=== PATIENT | male | born 1945 | race Caucasian/White ===

== ENCOUNTER 2019-01-01 12:43 | Observation (INO) | payer MEDICARE, BC ==
[2019-01-01] MEDS ORDERED: Magnesium 2 GM/50 ML BAG (IN WATER) ONE (13:24)
[2019-01-01 13:26] LABS: #Eosinphils 0.1 thou/uL (0.0-0.7); #Lymphocytes 1.8 thou/uL (1.20-3.40); #Neutrophils 10.4 thou/uL (1.40-6.50); %Basophils 0.3 % (0.0-1.0); %Eosinophils 0.7 % (0.0-10.0); %Lymphocytes 13.4 % (21.0-51.0); %Monocytes 7.6 % (0.0-10.0); %Neutrophils 77.9 % (42.0-75.0); Hemoglobin 15.6 g/dL (14.0-18.0); Mean Corpuscular HGB CONC 34.2 g/dL (32.0-36.0); Mean Corpuscular Hemoglobin 32.6 pg (27.0-31.0); Mean Corpuscular Volume 95.3 fL (78.0-98.0); Mean Platelet Volume 8.9 fL (7.4-10.4); Platelet Count 160 thou/uL (130-400); RBC Distribution Width 13.3 % (11.5-14.5); Red Blood Cell (RBC) Count 4.78 mill/uL (4.70-6.10); White Blood Cell (WBC) Count 13.3 thou/uL (4.8-10.8)
[2019-01-01 13:42] LABS: ALT (SGPT) 23 U/L (8-55); AST (SGOT) 21 U/L (5-34); Alkaline Phosphatase 74 U/L (40-150); Anion Gap 13 mmol/L (10-20); BUN (Urea Nitrogen) 11 mg/dL (8.4-25.7); Bilirubin, Total 1.2 mg/dL (0.2-1.2); CK (CPK) 93 U/L (30-200); Calc. Creatinine Clearance 0 mL/min (70-130); Calcium 9.3 mg/dL (7.8-10.44); Carbon Dioxide 26 mmol/L (23-31); Chloride 101 mmol/L (98-107); Estimated GFR-MDRD 66; Globulin 2.6 g/dL (2.4-3.5); Glucose 149 mg/dL (83-110); Potassium 4.1 mmol/L (3.5-5.1); Protein, Total 6.6 g/dL (5.8-8.1); Sodium 136 mmol/L (136-145)
--- NOTE | 2019-01-01 13:56 | RAD ---
EXAM: Portable chest PROVIDED CLINICAL HISTORY: Syncope COMPARISON: None FINDINGS: Cardiac and mediastinal silhouette is within normal limits. No focal consolidation, pleural fluid or pneumothorax evident. Vascular calcification is seen. IMPRESSION: No evidence for an acute cardiopulmonary process.
[2019-01-01] MEDS ORDERED: Acetaminophen 325 MG TAB PO PRN (14:35)
[2019-01-01] MEDS ORDERED: Nicotine 14 MG PATCH TD PRN (17:08)
[2019-01-01] MEDS ORDERED: Ondansetron PF 4 MG/2 ML Vial IVP PRN (17:08)
[2019-01-01 17:21] LABS: Troponin I Less than 0.010 ng/mL (< 0.028)
[2019-01-01 17:43] VITALS: BMI 28.7
--- NOTE | 2019-01-01 18:08 | CT ---
CT Brain WO Con History: Syncope Comparison: None. Findings: No acute hemorrhage or infarct. No midline shift or mass effect. Ventricular size and extra -axial CSF spaces are normal given the moderate atrophy. Calvarium is intact. Paranasal sinuses and mastoids are clear. Impression: No acute intracranial abnormality.
--- NOTE | 2019-01-01 18:56 | HP ---
CHIEF COMPLAINT: Syncope. HISTORY OF PRESENT ILLNESS: The patient is a pleasant 73-year-old male with past medical history significant for hypertension, hyperlipidemia, and tobacco abuse, who presented to the hospital via EMS after suffering 2 brief witnessed syncopal episodes at home. 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 He admits to not drinking much water, and was sweating profusely. He did not get into the shade, but sat on his 4- yost to rest. His was sitting next to him. He states that he became dizzy and had some vision changes which he describes as "seeing black and white." His , who witnessed the 2 events, states that he briefly slumped in his seat. This happened twice. The patient states that he could still hear what was going on around him. There was no loss of bowel or bladder or seizure activity witnessed. EMS was called. The patient was having frequent PVCs, and was administered lidocaine along with amiodarone. The patient was given IV fluids on the way to the ER. After receiving IV fluids, the patient stated that he was feeling back to his baseline. Upon my interview, the patient states that he is feeling well and is having no further symptoms. Workup on arrival has included a 12-lead EKG, which shows sinus rhythm and one PVC. The patient was continuing to have some trigeminal PVCs when he arrived, that these are becoming less frequent. The patient reports no chest pain, shortness of breath or palpitations at all regarding these episodes, and states that he has had no palpitations previously. REVIEW OF SYSTEMS: 12-point review of systems performed and is negative except that stated above. The patient denies any recent illnesses, cough, fever, or change in bowel or bladder. He has had no unintentional weight loss. ALLERGIES: PREDNISONE. HOME MEDICATIONS: 1. Duloxetine 60 mg tabs one tab daily. 2. Metoprolol tartrate 50 mg tablet one tab p.o. b.i.d. 3. Gabapentin 300 mg tab one tab orally t.i.d. 4. Losartan/hydrochlorothiazide 100/12.5 mg one tab once daily. 5. Atorvastatin 40 mg once daily. 6. Amlodipine 5 mg tab once daily. PAST MEDICAL HISTORY: Significant for type 2 diabetes mellitus, hypertension, hyperlipidemia, and anxiety/depression. PAST SURGICAL HISTORY: Cervical spinal fusion. SOCIAL HISTORY: The patient drinks alcohol regularly, 3 to 5 beers per day. He smokes one pack per day of cigarettes and has smoked for the past 30 years. No illicit drug use. He is and lives with his . FAMILY HISTORY: Positive for CVA in his brother. PHYSICAL EXAMINATION: VITAL SIGNS: Blood pressure 157/106, pulse 68, respirations 19, temperature 98.3, and O2 sat is 96% on room air. GENERAL: This is a middle-aged male, resting comfortably in bed, in no acute distress. HEENT: Head is atraumatic and normocephalic. Mucous membranes are moist. Poor dentition. CV: S1 and S2. Regular rate and rhythm with occasional ectopy. LUNGS: Regular respiratory rate and pattern. Clear to auscultation bilaterally. ABDOMEN: Positive bowel sounds. Soft and nontender. EXTREMITIES: Warm and well perfused. No edema. SKIN: Warm and dry. NEUROLOGIC: Cranial nerves 2 through 12 are intact, the patient is nonfocal. LABORATORY DATA: White blood cell count 13.3, hemoglobin 15.6, hematocrit 45.6 , and platelet count 160. Sodium 136, potassium 4.1, chloride 101, BUN 11, and creatinine 1.1. AST, ALT, and alk phos all within normal limits. Creatine kinase 93. Troponin is negative x2. ASSESSMENT: 1. Two brief syncopal episodes secondary to heat exhaustion/dehydration, resolved. 2. Trigeminal premature ventricular contractions at presentation, completely asymptomatic 3. Hypertension. 4. Hyperlipidemia. 5. Tobacco abuse. PLAN: The patient has received 3 L of fluid, magnesium, lidocaine and amiodarone by EMS. The patient feels well and back to his baseline. We will perform full syncopal workup including echo, brain CT, and carotids. Regarding his PVCs, they are becoming less frequent and are asymptomatic. We will continue his beta-luz for this and monitor their frequency on telemetry. If echocardiogram looks okay, it is reasonable for outpatient cardiology referral for PVC workup as an outpatient. Further recommendation is based on findings of noninvasive testing. Job ID: [id number] [facility]
[2019-01-01 19:41] LABS: Troponin I Less than 0.010 ng/mL (< 0.028)
--- NOTE | 2019-01-01 21:49 | ULT ---
US Carotid Doppler STANDARD History: Syncope Comparison: None. Findings: Real-time grayscale, color, and spectral analysis of the extracranial carotid and vertebral arteries was performed. Moderate obstructive plaque both carotid bulbs. Antegrade flow both vertebral arteries. No elevated peak systolic velocities within the internal carotid arteries. Impression: No hemodynamically significant stenosis.
[2019-01-01] MEDS: Famotidine 20 MG TAB PO SCH (21:52)
[2019-01-01] MEDS: Gabapentin 300 MG CAP PO SCH (21:53)
[2019-01-01] MEDS: Metoprolol Tartrate 50 MG TAB PO SCH (21:53)
[2019-01-02 05:58] LABS: #Eosinphils 0.3 thou/uL (0.0-0.7); #Lymphocytes 2.6 thou/uL (1.20-3.40); #Neutrophils 4.1 thou/uL (1.40-6.50); %Basophils 0.4 % (0.0-1.0); %Eosinophils 3.8 % (0.0-10.0); %Lymphocytes 32.5 % (21.0-51.0); %Monocytes 12.3 % (0.0-10.0); Hemoglobin 15.1 g/dL (14.0-18.0); Mean Corpuscular HGB CONC 33.8 g/dL (32.0-36.0); Mean Corpuscular Hemoglobin 32.6 pg (27.0-31.0); Mean Corpuscular Volume 96.4 fL (78.0-98.0); Mean Platelet Volume 9.7 fL (7.4-10.4); Platelet Count 163 thou/uL (130-400); RBC Distribution Width 13.5 % (11.5-14.5); Red Blood Cell (RBC) Count 4.62 mill/uL (4.70-6.10); White Blood Cell (WBC) Count 8.1 thou/uL (4.8-10.8)
[2019-01-02 06:23] LABS: Anion Gap 13 mmol/L (10-20); BUN (Urea Nitrogen) 13 mg/dL (8.4-25.7); Calc. Creatinine Clearance 98 mL/min (70-130); Calcium 9.8 mg/dL (7.8-10.44); Carbon Dioxide 27 mmol/L (23-31); Chloride 102 mmol/L (98-107); Estimated GFR-MDRD Greater than 90; Glucose 140 mg/dL (83-110); Potassium 3.9 mmol/L (3.5-5.1); Sodium 138 mmol/L (136-145)
[2019-01-02] MEDS ORDERED: DULoxetine 60 MG CAP PO SCH (09:00)
[2019-01-02] MEDS ORDERED: Hydrochlorothiazide 25 MG TAB PO SCH (09:00)
[2019-01-02] MEDS ORDERED: Non-Formulary Item 1 EACH (Losartan/Hydrochlorothiazide [Losartan-Hctz 100-12.5 Mg Tab] 1 PO SCH (09:00)
[2019-01-02] MEDS ORDERED: Losartan 25 MG TAB PO SCH (09:00)
[2019-01-02] MEDS ORDERED: Amlodipine 5 MG TAB PO SCH (09:00)
[2019-01-02] MEDS ORDERED: Atorvastatin Calcium 40 MG TAB PO SCH (09:00)
[2019-01-02] MEDS: Gabapentin 300 MG CAP PO SCH (09:03)
[2019-01-02] MEDS: Famotidine 20 MG TAB PO SCH (09:03)
[2019-01-02] MEDS: Metoprolol Tartrate 50 MG TAB PO SCH (09:04)
[2019-01-02 12:24] VITALS: BP 142/70; TEMP 98
== END 2019-01-02 15:09 | disposition home or self-care (01) ==
LOC: ERS 12:43 → 2SW 14:35
PROVIDERS: ADMIT Family Medicine; ATTEND Family Medicine
DX: T67.5XXA Heat exhaustion, unspecified, initial encounter (principal); E86.0 Dehydration; I49.3 Ventricular premature depolarization; I10 Essential (primary) hypertension; E78.5 Hyperlipidemia, unspecified; F17.210 Nicotine dependence, cigarettes, uncomplicated; E11.9 Type 2 diabetes mellitus without complications; F32.9 Major depressive disorder, single episode, unspecified; F41.9 Anxiety disorder, unspecified; Z98.890 Other specified postprocedural states; Z88.8 Allergy status to other drugs, medicaments and biological substances; Z79.899 Other long term (current) drug therapy
CPT/HCPCS: 70450; 71045; 80048; 80053; 82550; 83735; 84484 ×2; 85025 ×2; 93005; 93306; 93880; 94760; 96365; 99285; G0378 ×2; 36415; J3475

== ENCOUNTER 2022-08-27 18:10 | Inpatient (IN) | payer MEDICARE, OTHER ==
[2022-08-27 19:56] LABS: #Basophils 0.1 thou/uL (0.0-0.2); #Lymphocytes 1.8 thou/uL (1.20-3.40); #Monocytes 0.6 thou/uL (0.11-0.59); #Neutrophils 6.1 thou/uL (1.40-6.50); %Basophils 0.7 % (0.0-1.0); %Eosinophils 0.4 % (0.0-10.0); %Lymphocytes 21.1 % (21.0-51.0); %Monocytes 6.5 % (0.0-10.0); %Neutrophils 71.3 % (42.0-75.0); Hemoglobin 14.2 g/dL (14.0-18.0); Mean Corpuscular HGB CONC 35.4 g/dL (32.0-36.0); Mean Corpuscular Hemoglobin 32.4 pg (27.0-31.0); Mean Corpuscular Volume 91.4 fl (78.0-98.0); Mean Platelet Volume 10.3 fL (7.4-10.4); Platelet Count 157 10x3/uL (130-400); RBC Distribution Width 13.9 % (11.5-14.5); Red Blood Cell (RBC) Count 4.39 mill/uL (4.70-6.10); White Blood Cell (WBC) Count 8.6 10x3/uL (4.8-10.8)
[2022-08-27 20:17] LABS: AST (SGOT) 67 U/L (5-34); Albumin 3.3 g/dL (3.4-4.8); Anion Gap 20 mmol/L (10-20); Calc. Creatinine Clearance 0 mL/min (70-130); Calcium 8.9 mg/dL (7.8-10.44); Carbon Dioxide 28 mmol/L (23-31); Chloride 81 mmol/L (98-107); Estimated GFR 21; Protein, Total 7.3 g/dL (5.8-8.1); Sodium 127 mmol/L (136-145)
[2022-08-27 20:22] LABS: ALT (SGPT) 25 U/L (8-55); Alkaline Phosphatase 310 U/L (40-110); BUN (Urea Nitrogen) 28 mg/dL (8.4-25.7); Glucose 91 mg/dL (83-110); Lipase 39 U/L (8-78); Magnesium 1.9 mg/dL (1.6-2.6)
[2022-08-27 20:39] LABS: CKMB 4.6 ng/mL (0-6.6)
[2022-08-27 20:42] LABS: Potassium 2.3 mmol/L (3.5-5.1)
[2022-08-27] MEDS ORDERED: Potassium Chloride 20 MEQ TAB ONE ×3 (20:50→21:04)
[2022-08-27] MEDS ORDERED: Aspirin Chewable 81 MG TAB ONE (21:20)
[2022-08-27 23:53] LABS: Hemoglobin A1c 5.9 % (4.0-6.0)
[2022-08-28 00:04] LABS: Phosphorus 2.7 mg/dL (2.3-4.7)
[2022-08-28] MEDS ORDERED: Lorazepam 1 MG TAB PO PRN (00:09)
[2022-08-28] MEDS ORDERED: Lorazepam 2 MG/ML VIAL IM PRN (00:09)
[2022-08-28 00:12] LABS: Troponin I 0.038 ng/mL (< 0.028)
[2022-08-28] MEDS ORDERED: Electrolyte Replacement Protocol 1 EACH FS SCH (00:15)
[2022-08-28 00:40] LABS: HBCM Index 0.08 S/CO (0-0.79); HBSAg Index 0.29 S/CO (0-0.99); Hep A IgM AB Non-Reactive (NonReactive); Hep A IgM S/CO 0.19 S/CO (0-0.79); Hep B Surf Ag Non-Reactive S/CO (NonReactive); Hep C IgG Ab Non-Reactive (NonReactive); Hep C Index 0.06 S/CO (0-0.79); Hepatitis B Core IgM Abs Non-Reactive (NonReactive)
[2022-08-28] MEDS: Thiamine HCl 200 MG/2 ML VIAL SLOW IVP SCH (01:21)
[2022-08-28] MEDS: Sodium Chloride 0.9% 1,000 ML IV SCH ×4 (01:21→22:31)
[2022-08-28] MEDS: Potassium Chloride 20 MEQ in Premix Bag 1 BAG IVPB SCH ×2 (01:21→04:25)
[2022-08-28 02:06] VITALS: BMI 25.0
[2022-08-28 05:00] LABS: #Lymphocytes 1.4 thou/uL (1.20-3.40); #Monocytes 0.6 thou/uL (0.11-0.59); #Neutrophils 4.6 thou/uL (1.40-6.50); %Basophils 0.3 % (0.0-1.0); %Eosinophils 0.4 % (0.0-10.0); %Lymphocytes 21.4 % (21.0-51.0); %Monocytes 8.3 % (0.0-10.0); %Neutrophils 69.6 % (42.0-75.0); Hemoglobin 12.6 g/dL (14.0-18.0); Mean Corpuscular HGB CONC 35.1 g/dL (32.0-36.0); Mean Corpuscular Hemoglobin 31.9 pg (27.0-31.0); Mean Corpuscular Volume 90.9 fl (78.0-98.0); Mean Platelet Volume 9.8 fL (7.4-10.4); Platelet Count 140 10x3/uL (130-400); RBC Distribution Width 13.6 % (11.5-14.5); Red Blood Cell (RBC) Count 3.95 mill/uL (4.70-6.10); White Blood Cell (WBC) Count 6.7 10x3/uL (4.8-10.8)
[2022-08-28 05:17] LABS: Creatinine, Urine 42.27 mg/dL (63-166)
[2022-08-28 05:21] LABS: ALT (SGPT) 20 U/L (8-55); AST (SGOT) 55 U/L (5-34); Albumin 2.8 g/dL (3.4-4.8); Alkaline Phosphatase 240 U/L (40-110); Anion Gap 17 mmol/L (10-20); BUN (Urea Nitrogen) 26 mg/dL (8.4-25.7); Bilirubin, Total 1.8 mg/dL (0.2-1.2); Calc. Creatinine Clearance 24 mL/min (70-130); Calcium 8.1 mg/dL (7.8-10.44); Carbon Dioxide 24 mmol/L (23-31); Chloride 91 mmol/L (98-107); Estimated GFR 23; Globulin 3.2 g/dL (2.4-3.5); Glucose 90 mg/dL (83-110); Sodium 129 mmol/L (136-145)
[2022-08-28] MEDS ORDERED: Potassium Chloride 20 MEQ in Premix Bag 1 BAG IVPB SCH ×2 (08:00)
[2022-08-28] MEDS: Amlodipine 5 MG TAB PO SCH (08:54)
[2022-08-28] MEDS: Multivit, Therapeutic 1 TAB PO SCH (08:55)
[2022-08-28] MEDS: Folic Acid 1 MG TAB PO SCH (08:55)
[2022-08-28] MEDS: Metoprolol Tartrate 50 MG TAB PO SCH ×2 (08:55→20:39)
[2022-08-28 14:23] LABS: Anion Gap 18 mmol/L (10-20); BUN (Urea Nitrogen) 25 mg/dL (8.4-25.7); Calc. Creatinine Clearance 25 mL/min (70-130); Calcium 8.5 mg/dL (7.8-10.44); Carbon Dioxide 24 mmol/L (23-31); Chloride 92 mmol/L (98-107); Estimated GFR 25; Glucose 114 mg/dL (83-110); Potassium 3.1 mmol/L (3.5-5.1); Sodium 131 mmol/L (136-145)
[2022-08-28 16:01] LABS: Magnesium 1.7 mg/dL (1.6-2.6)
[2022-08-28] MEDS ORDERED: GoLYTELY 4,000 ml Bottle PO SCH (17:00)
[2022-08-28] MEDS ORDERED: Potassium Chloride 20 MEQ TAB PO SCH ×2 (17:15→21:00)
[2022-08-28] MEDS: Magnesium Oxide 400 MG TAB PO SCH (20:40)
[2022-08-29] MEDS ORDERED: Lorazepam 1 MG TAB PO PRN (00:09)
[2022-08-29] MEDS: Thiamine HCl 200 MG/2 ML VIAL SLOW IVP SCH ×2 (00:17→23:36)
[2022-08-29 01:40] LABS: Potassium 3.7 mmol/L (3.5-5.1)
[2022-08-29 05:38] LABS: #Lymphocytes 1.5 thou/uL (1.20-3.40); #Monocytes 0.7 thou/uL (0.11-0.59); #Neutrophils 4.4 thou/uL (1.40-6.50); %Basophils 0.5 % (0.0-1.0); %Eosinophils 0.3 % (0.0-10.0); %Lymphocytes 22.8 % (21.0-51.0); %Neutrophils 66.3 % (42.0-75.0); Hemoglobin 11.6 g/dL (14.0-18.0); Mean Corpuscular Hemoglobin 32.2 pg (27.0-31.0); Mean Platelet Volume 9.6 fL (7.4-10.4); Platelet Count 121 10x3/uL (130-400); RBC Distribution Width 13.8 % (11.5-14.5); Red Blood Cell (RBC) Count 3.59 mill/uL (4.70-6.10); White Blood Cell (WBC) Count 6.6 10x3/uL (4.8-10.8)
[2022-08-29 06:00] LABS: ALT (SGPT) 22 U/L (8-55); AST (SGOT) 59 U/L (5-34); Albumin 2.7 g/dL (3.4-4.8); Alkaline Phosphatase 247 U/L (40-110); Anion Gap 15 mmol/L (10-20); BUN (Urea Nitrogen) 20 mg/dL (8.4-25.7); Bilirubin, Total 1.8 mg/dL (0.2-1.2); Calc. Creatinine Clearance 32 mL/min (70-130); Calcium 8.3 mg/dL (7.8-10.44); Carbon Dioxide 27 mmol/L (23-31); Chloride 96 mmol/L (98-107); Estimated GFR 33; Glucose 94 mg/dL (83-110); Protein, Total 5.7 g/dL (5.8-8.1); Sodium 135 mmol/L (136-145)
[2022-08-29 06:06] LABS: Troponin I 0.032 ng/mL (< 0.028)
[2022-08-29] MEDS: Sodium Chloride 0.9% 1,000 ML IV SCH ×2 (06:38→18:11)
[2022-08-29 08:00] LABS: Magnesium 1.5 mg/dL (1.6-2.6)
[2022-08-29] MEDS: Metoprolol Tartrate 50 MG TAB PO SCH ×2 (09:04→20:52)
[2022-08-29] MEDS ORDERED: Potassium Chloride 20 MEQ TAB PO SCH ×2 (10:45→23:00)
[2022-08-29] MEDS ORDERED: PHENYLEPHRINE-NS 100 MCG/ML 10 ML SYRINGE ONE (10:50)
[2022-08-29] MEDS ORDERED: PROPOFOL 200 MG/20 ML VIAL ONE (10:50)
[2022-08-29] MEDS ORDERED: Lidocaine 1% PF 5 ML VIAL ONE (10:50)
[2022-08-29] MEDS: Magnesium Oxide 400 MG TAB PO SCH (12:42)
[2022-08-29] MEDS: Folic Acid 1 MG TAB PO SCH (12:42)
[2022-08-29] MEDS: Amlodipine 5 MG TAB PO SCH (12:42)
[2022-08-29] MEDS: Multivit, Therapeutic 1 TAB PO SCH (12:42)
[2022-08-29 15:27] LABS: Magnesium 1.4 mg/dL (1.6-2.6); Potassium 3.3 mmol/L (3.5-5.1)
[2022-08-29] MEDS ORDERED: Neomycin 500 mg Tablet PO SCH ×2 (17:45→18:15)
[2022-08-29] MEDS ORDERED: Erythromycin Base 250 MG TAB PO SCH ×2 (17:45→18:15)
[2022-08-29] MEDS ORDERED: Magnesium Oxide 400 MG TAB PO SCH (18:15)
[2022-08-29] MEDS ORDERED: Nicotine 21 MG PATCH TD SCH (20:07)
[2022-08-29] MEDS: Potassium Chloride 30 MEQ in Sodium Chloride 0.9% 1,000 ML IV SCH (20:47)
[2022-08-29] MEDS: Erythromycin Base 250 MG TAB PO SCH (20:52)
[2022-08-29] MEDS: Neomycin 500 mg Tablet PO SCH (20:52)
[2022-08-29] MEDS: Ondansetron ODT 4 MG TAB PO PRN ×2 (21:34→23:36)
[2022-08-29] MEDS: Nicotine 21 MG PATCH TD SCH (23:20)
[2022-08-30] MEDS ORDERED: Lorazepam 1 MG TAB PO PRN (00:09)
[2022-08-30] MEDS: Erythromycin Base 250 MG TAB PO SCH (00:18)
[2022-08-30] MEDS: Neomycin 500 mg Tablet PO SCH (00:18)
[2022-08-30 05:25] LABS: #Lymphocytes 1.4 thou/uL (1.20-3.40); #Monocytes 0.5 thou/uL (0.11-0.59); %Basophils 0.7 % (0.0-1.0); %Eosinophils 0.5 % (0.0-10.0); %Lymphocytes 22.9 % (21.0-51.0); %Neutrophils 66.9 % (42.0-75.0); Hemoglobin 11.8 g/dL (14.0-18.0); Mean Corpuscular HGB CONC 34.4 g/dL (32.0-36.0); Mean Corpuscular Hemoglobin 31.7 pg (27.0-31.0); Mean Platelet Volume 9.6 fL (7.4-10.4); Platelet Count 112 10x3/uL (130-400); RBC Distribution Width 13.8 % (11.5-14.5); Red Blood Cell (RBC) Count 3.74 mill/uL (4.70-6.10)
[2022-08-30 05:46] LABS: ALT (SGPT) 27 U/L (8-55); AST (SGOT) 83 U/L (5-34); Albumin 2.8 g/dL (3.4-4.8); Alkaline Phosphatase 284 U/L (40-110); Anion Gap 12 mmol/L (10-20); BUN (Urea Nitrogen) 14 mg/dL (8.4-25.7); Bilirubin, Total 2.5 mg/dL (0.2-1.2); Calc. Creatinine Clearance 46 mL/min (70-130); Calcium 8.6 mg/dL (7.8-10.44); Carbon Dioxide 29 mmol/L (23-31); Chloride 95 mmol/L (98-107); Estimated GFR 51; Globulin 3.3 g/dL (2.4-3.5); Glucose 109 mg/dL (83-110); Magnesium 1.1 mg/dL (1.6-2.6); Potassium 3.3 mmol/L (3.5-5.1); Protein, Total 6.1 g/dL (5.8-8.1); Sodium 133 mmol/L (136-145)
[2022-08-30] MEDS: Metoprolol Tartrate 50 MG TAB PO SCH ×2 (06:12→20:16)
[2022-08-30] MEDS: Magnesium Oxide 400 MG TAB PO SCH ×2 (06:12→20:17)
[2022-08-30] MEDS: Potassium Chloride 30 MEQ in Sodium Chloride 0.9% 1,000 ML IV SCH (07:00)
[2022-08-30] MEDS ORDERED: fentaNYL PF 100 MCG/2 ML SYRINGE ONE (07:36)
[2022-08-30] MEDS ORDERED: Albumin 5% 0 ML ONE (07:39)
[2022-08-30] MEDS ORDERED: Bupivacaine/Epinephrine 0.25% 30 ML VIAL ONE ×2 (07:48→11:05)
[2022-08-30] MEDS ORDERED: cefOXitin 2 GM VIAL ONE ×2 (08:11→10:32)
[2022-08-30] MEDS ORDERED: Sodium Chloride 0.9% 100 ML ONE (08:11)
[2022-08-30] MEDS ORDERED: Bupivacaine 0.25% HCL 30 ML VIAL ONE ×2 (08:20)
[2022-08-30] MEDS ORDERED: ePHEDrine 50 MG/ML VIAL ONE (08:22)
[2022-08-30] MEDS ORDERED: Rocuronium Bromide 10 MG/ML (10ML VIAL) ONE (08:22)
[2022-08-30] MEDS ORDERED: PROPOFOL 200 MG/20 ML VIAL ONE (08:22)
[2022-08-30] MEDS ORDERED: Ondansetron PF 4 MG/2 ML Vial ONE (08:22)
[2022-08-30] MEDS ORDERED: Lidocaine 1% PF 5 ML VIAL ONE (08:22)
[2022-08-30] MEDS ORDERED: NEOSTIGMINE 3 MG/3 ML SYR 3 MG/3 ML SYRINGE ONE (08:22)
[2022-08-30] MEDS ORDERED: Nicotine 21 MG PATCH TD SCH (09:00)
[2022-08-30 09:05] LABS: Phosphorus 1.8 mg/dL (2.3-4.7)
[2022-08-30] MEDS ORDERED: Rocuronium Bromide 50 MG/5 ML VIAL ONE (10:07)
[2022-08-30] MEDS ORDERED: Methylene Blue 50 MG/10 ML AMPUL ONE (10:20)
[2022-08-30] MEDS ORDERED: Furosemide 20 MG/2 ML VIAL ONE (10:35)
[2022-08-30] MEDS ORDERED: SUGAMMADEX SODIUM 200 MG/2 ML VIAL ONE (11:33)
[2022-08-30] MEDS ORDERED: Ondansetron HCl/PF 4 MG/2 ML Vial IVP PRN (12:05)
[2022-08-30] MEDS ORDERED: Promethazine HCl 25 MG/ML VIAL IM PRN (12:05)
[2022-08-30] MEDS ORDERED: Morphine 4 MG/ML VIAL SLOW IVP PRN (12:24)
[2022-08-30] MEDS ORDERED: Fentanyl 100 MCG/2 ML VIAL ONE (12:41)
[2022-08-30] MEDS: D5 0.9% NS w/ 20 mEq KCl 1,000 ML IV SCH (12:45)
[2022-08-30] MEDS: Amlodipine 5 MG TAB PO SCH (15:37)
[2022-08-30] MEDS: Folic Acid 1 MG TAB PO SCH (15:37)
[2022-08-30] MEDS: Multivit, Therapeutic 1 TAB PO SCH (15:38)
[2022-08-30] MEDS: Morphine 2 MG/ML VIAL SLOW IVP PRN (19:37)
[2022-08-30] MEDS: Nicotine 21 MG PATCH TD SCH (20:30)
[2022-08-31] MEDS ORDERED: Lorazepam 0.5 MG TAB PO PRN (00:09)
[2022-08-31] MEDS: D5 0.9% NS w/ 20 mEq KCl 1,000 ML IV SCH ×3 (00:20→11:48)
[2022-08-31] MEDS: Morphine 2 MG/ML VIAL SLOW IVP PRN (06:00)
[2022-08-31 07:28] LABS: ALT (SGPT) 34 U/L (8-55); AST (SGOT) 163 U/L (5-34); Albumin 2.3 g/dL (3.4-4.8); Alkaline Phosphatase 203 U/L (40-110); Anion Gap 11 mmol/L (10-20); BUN (Urea Nitrogen) 10 mg/dL (8.4-25.7); Calc. Creatinine Clearance 57 mL/min (70-130); Calcium 7.8 mg/dL (7.8-10.44); Carbon Dioxide 31 mmol/L (23-31); Chloride 98 mmol/L (98-107); Estimated GFR 66; Globulin 2.9 g/dL (2.4-3.5); Glucose 134 mg/dL (83-110); Potassium 2.9 mmol/L (3.5-5.1); Protein, Total 5.2 g/dL (5.8-8.1); Sodium 137 mmol/L (136-145)
[2022-08-31 07:35] LABS: Hemoglobin 11.4 g/dL (14.0-18.0); Mean Corpuscular HGB CONC 34.6 g/dL (32.0-36.0); Mean Corpuscular Hemoglobin 32.4 pg (27.0-31.0); Mean Corpuscular Volume 93.6 fl (78.0-98.0); RBC Distribution Width 14.1 % (11.5-14.5); Red Blood Cell (RBC) Count 3.52 mill/uL (4.70-6.10)
[2022-08-31] MEDS: Amlodipine 5 MG TAB PO SCH (08:24)
[2022-08-31] MEDS: Thiamine 100 MG TAB PO SCH (08:24)
[2022-08-31] MEDS: Metoprolol Tartrate 50 MG TAB PO SCH ×2 (08:24→22:53)
[2022-08-31] MEDS: Multivit, Therapeutic 1 TAB PO SCH (08:25)
[2022-08-31] MEDS: Magnesium Oxide 400 MG TAB PO SCH ×2 (08:25→22:53)
[2022-08-31] MEDS: Folic Acid 1 MG TAB PO SCH (08:25)
[2022-08-31] MEDS ORDERED: Iopamidol-370 76% 500 ML 1 ML ONE (08:48)
[2022-08-31 09:00] LABS: #Lymphocytes 1.3 thou/uL (1.20-3.40); #Monocytes 0.6 thou/uL (0.11-0.59); #Neutrophils 4.9 thou/uL (1.40-6.50); %Basophils 0.2 % (0.0-1.0); %Eosinophils 0.4 % (0.0-10.0); %Lymphocytes 18.7 % (21.0-51.0); %Monocytes 8.9 % (0.0-10.0); %Neutrophils 71.9 % (42.0-75.0); Mean Platelet Volume 9.7 fL (7.4-10.4); Platelet Count 103 10x3/uL (130-400); Platelet Morphology Comment Appears Decreased; White Blood Cell (WBC) Count 6.8 10x3/uL (4.8-10.8)
[2022-08-31] MEDS: D5 NS w/ 40 mEq KCl 1,000 ML IV SCH (14:42)
[2022-08-31] MEDS: Ondansetron ODT 4 MG TAB PO PRN (19:33)
[2022-08-31] MEDS ORDERED: Ipratropium/Albuterol 3 ML NEB NEB PRN (21:39)
[2022-08-31] MEDS: Tamsulosin HCl 0.4 MG CAP PO SCH (22:53)
[2022-08-31] MEDS: Nicotine 21 MG PATCH TD SCH (22:53)
[2022-08-31] MEDS: Ipratropium/Albuterol 3 ML NEB NEB SCH (23:49)
[2022-08-31] MEDS: Ondansetron PF 4 MG/2 ML Vial IVP PRN (23:52)
[2022-09-01] MEDS: D5 NS w/ 40 mEq KCl 1,000 ML IV SCH ×3 (00:15→18:19)
[2022-09-01] MEDS ORDERED: Promethazine HCl 12.5 MG in Sodium Chloride 0.9% 50 ML IVPB PRN (01:55)
[2022-09-01 02:41] LABS: Hemoglobin 12.9 g/dL (14.0-18.0); Mean Corpuscular HGB CONC 33.7 g/dL (32.0-36.0); Mean Corpuscular Hemoglobin 31.5 pg (27.0-31.0); Mean Corpuscular Volume 93.6 fl (78.0-98.0); Platelet Count 99 10x3/uL (130-400); RBC Distribution Width 14.3 % (11.5-14.5); Red Blood Cell (RBC) Count 4.09 mill/uL (4.70-6.10); White Blood Cell (WBC) Count 8.8 10x3/uL (4.8-10.8)
[2022-09-01 02:56] LABS: ALT (SGPT) 40 U/L (8-55); AST (SGOT) 150 U/L (5-34); Albumin 2.6 g/dL (3.4-4.8); Alkaline Phosphatase 211 U/L (40-110); Anion Gap 12 mmol/L (10-20); BUN (Urea Nitrogen) 10 mg/dL (8.4-25.7); Bilirubin, Total 2.5 mg/dL (0.2-1.2); Calc. Creatinine Clearance 59 mL/min (70-130); Calcium 8.2 mg/dL (7.8-10.44); Carbon Dioxide 26 mmol/L (23-31); Chloride 100 mmol/L (98-107); Estimated GFR 68; Globulin 3.6 g/dL (2.4-3.5); Glucose 178 mg/dL (83-110); Potassium 3.2 mmol/L (3.5-5.1); Protein, Total 6.2 g/dL (5.8-8.1); Sodium 135 mmol/L (136-145)
[2022-09-01 03:09] LABS: Band 20 % (5-11); Hypochromia SLIGHT = 6-15 cells (100X) (0-5/hpf); Lymphocytes 5 % (21-51); MDiff Complete? YES; Monocytes 3 % (0-10); Neutrophil 72 % (42-75); Platelet Morphology Comment Appears Decreased
[2022-09-01] MEDS: Ipratropium/Albuterol 3 ML NEB NEB SCH ×6 (03:14→22:35)
[2022-09-01] MEDS: Metoprolol Tartrate 50 MG TAB PO SCH ×2 (08:41→20:45)
[2022-09-01] MEDS: Amlodipine 5 MG TAB PO SCH (08:41)
[2022-09-01] MEDS: Magnesium Oxide 400 MG TAB PO SCH ×2 (08:44→20:44)
[2022-09-01 08:46] LABS: Magnesium 0.9 mg/dL (1.6-2.6); Phosphorus 2.6 mg/dL (2.3-4.7)
[2022-09-01] MEDS: Thiamine 100 MG TAB PO SCH (08:48)
[2022-09-01] MEDS: Folic Acid 1 MG TAB PO SCH (08:48)
[2022-09-01] MEDS: Multivit, Therapeutic 1 TAB PO SCH (08:48)
[2022-09-01] MEDS ORDERED: Electrolyte Replacement Protocol FS PRN (09:45)
[2022-09-01] MEDS ORDERED: Magnesium Sulfate In Water 4 GM in Premix Bag 1 BAG IVPB SCH (10:00)
[2022-09-01] MEDS: Potassium Chloride 20 MEQ in Premix Bag 1 BAG IVPB SCH ×2 (10:23→16:10)
[2022-09-01] MEDS: Ondansetron PF 4 MG/2 ML Vial IVP PRN (14:02)
[2022-09-01] MEDS: Cefepime 2 GM in Sodium Chloride 0.9% 100 ML IVPB SCH (15:30)
[2022-09-01 18:51] LABS: Potassium 3.2 mmol/L (3.5-5.1)
[2022-09-01] MEDS: Nicotine 21 MG PATCH TD SCH (20:45)
[2022-09-01] MEDS: Tamsulosin HCl 0.4 MG CAP PO SCH (20:46)
[2022-09-02] MEDS: Cefepime 2 GM in Sodium Chloride 0.9% 100 ML IVPB SCH ×2 (03:30→14:19)
[2022-09-02] MEDS: Ipratropium/Albuterol 3 ML NEB NEB SCH ×3 (03:36→11:06)
[2022-09-02] MEDS: D5 NS w/ 40 mEq KCl 1,000 ML IV SCH ×2 (04:13→12:24)
[2022-09-02 06:58] LABS: Band 23 % (5-11); Hemoglobin 11.3 g/dL (14.0-18.0); Hypochromia SLIGHT = 6-15 cells (100X) (0-5/hpf); Lymphocytes 11 % (21-51); MDiff Complete? YES; Mean Corpuscular Hemoglobin 32.3 pg (27.0-31.0); Mean Platelet Volume 9.9 fL (7.4-10.4); Monocytes 2 % (0-10); Neutrophil 62 % (42-75); Platelet Count 99 10x3/uL (130-400); Platelet Morphology Comment Appears Decreased; RBC Distribution Width 14.3 % (11.5-14.5); Reactive Lymphocytes 2 % (0-10); White Blood Cell (WBC) Count 9.2 10x3/uL (4.8-10.8)
[2022-09-02 07:00] LABS: ALT (SGPT) 32 U/L (8-55); AST (SGOT) 83 U/L (5-34); Albumin 2.6 g/dL (3.4-4.8); Alkaline Phosphatase 184 U/L (40-110); Anion Gap 13 mmol/L (10-20); BUN (Urea Nitrogen) 13 mg/dL (8.4-25.7); Calc. Creatinine Clearance 76 mL/min (70-130); Calcium 7.7 mg/dL (7.8-10.44); Carbon Dioxide 25 mmol/L (23-31); Chloride 101 mmol/L (98-107); Estimated GFR 89; Globulin 3.3 g/dL (2.4-3.5); Glucose 131 mg/dL (83-110); Magnesium 1.8 mg/dL (1.6-2.6); Potassium 3.5 mmol/L (3.5-5.1); Protein, Total 5.9 g/dL (5.8-8.1); Sodium 135 mmol/L (136-145)
[2022-09-02] MEDS ORDERED: Potassium Bicarbonate/Cit Ac 20 MEQ TAB PO SCH (08:00)
[2022-09-02] MEDS ORDERED: Magnesium 2 GM/50 ML(in water) 2 GM in Premix Bag 1 BAG IVPB SCH (08:00)
[2022-09-02] MEDS: Metoprolol Tartrate 50 MG TAB PO SCH ×2 (08:55→20:48)
[2022-09-02] MEDS: Amlodipine 5 MG TAB PO SCH (08:57)
[2022-09-02] MEDS: Magnesium Oxide 400 MG TAB PO SCH ×2 (08:59→20:47)
[2022-09-02] MEDS: Multivit, Therapeutic 1 TAB PO SCH (08:59)
[2022-09-02] MEDS: Thiamine 100 MG TAB PO SCH (08:59)
[2022-09-02] MEDS: Folic Acid 1 MG TAB PO SCH (08:59)
[2022-09-02] MEDS ORDERED: Ipratropium/Albuterol 3 ML NEB NEB PRN (12:03)
[2022-09-02] MEDS ORDERED: Ipratropium/Albuterol 3 ML NEB NEB SCH (12:30)
[2022-09-02] MEDS: Tamsulosin HCl 0.4 MG CAP PO SCH (20:47)
[2022-09-02] MEDS: Melatonin 3 MG TAB PO SCH (20:47)
[2022-09-02] MEDS: Nicotine 21 MG PATCH TD SCH (20:49)
[2022-09-03] MEDS: Cefepime 2 GM in Sodium Chloride 0.9% 100 ML IVPB SCH ×2 (03:49→15:52)
[2022-09-03] MEDS: D5 NS w/ 40 mEq KCl 1,000 ML IV SCH ×2 (03:51→10:36)
[2022-09-03] MEDS: Metoprolol Tartrate 50 MG TAB PO SCH ×2 (08:47→21:20)
[2022-09-03] MEDS: Amlodipine 5 MG TAB PO SCH (08:47)
[2022-09-03] MEDS: Multivit, Therapeutic 1 TAB PO SCH (08:47)
[2022-09-03] MEDS: Magnesium Oxide 400 MG TAB PO SCH ×2 (08:47→21:20)
[2022-09-03] MEDS: Folic Acid 1 MG TAB PO SCH (08:47)
[2022-09-03 10:08] LABS: Magnesium 1.6 mg/dL (1.6-2.6)
[2022-09-03 10:09] LABS: ALT (SGPT) 35 U/L (8-55); AST (SGOT) 86 U/L (5-34); Albumin 2.3 g/dL (3.4-4.8); Alkaline Phosphatase 208 U/L (40-110); Anion Gap 14 mmol/L (10-20); BUN (Urea Nitrogen) 10 mg/dL (8.4-25.7); Bilirubin, Total 2.6 mg/dL (0.2-1.2); Calc. Creatinine Clearance 90 mL/min (70-130); Calcium 7.8 mg/dL (7.8-10.44); Carbon Dioxide 24 mmol/L (23-31); Chloride 97 mmol/L (98-107); Estimated GFR 94; Globulin 3.3 g/dL (2.4-3.5); Glucose 88 mg/dL (83-110); Potassium 3.4 mmol/L (3.5-5.1); Protein, Total 5.6 g/dL (5.8-8.1); Sodium 132 mmol/L (136-145)
[2022-09-03 10:25] LABS: #Lymphocytes 0.7 thou/uL (1.20-3.40); #Monocytes 0.6 thou/uL (0.11-0.59); #Neutrophils 8.7 thou/uL (1.40-6.50); %Basophils 0.1 % (0.0-1.0); %Eosinophils 0.4 % (0.0-10.0); %Lymphocytes 6.6 % (21.0-51.0); %Monocytes 6.1 % (0.0-10.0); %Neutrophils 86.9 % (42.0-75.0); Hemoglobin 11.4 g/dL (14.0-18.0); Mean Corpuscular HGB CONC 33.2 g/dL (32.0-36.0); Mean Corpuscular Hemoglobin 31.7 pg (27.0-31.0); Mean Corpuscular Volume 95.6 fl (78.0-98.0); Mean Platelet Volume 10.4 fL (7.4-10.4); Platelet Count 102 10x3/uL (130-400); Red Blood Cell (RBC) Count 3.59 mill/uL (4.70-6.10)
[2022-09-03] MEDS: Thiamine 100 MG TAB PO SCH (10:35)
[2022-09-03] MEDS ORDERED: Magnesium 2 GM/50 ML(in water) 2 GM in Premix Bag 1 BAG IVPB SCH (12:15)
[2022-09-03] MEDS ORDERED: Potassium Chloride 20 MEQ TAB PO SCH (12:15)
[2022-09-03] MEDS: Melatonin 3 MG TAB PO SCH (21:20)
[2022-09-03] MEDS: Nicotine 21 MG PATCH TD SCH (23:02)
[2022-09-04] MEDS: Cefepime 2 GM in Sodium Chloride 0.9% 100 ML IVPB SCH ×2 (02:43→15:32)
[2022-09-04 05:54] LABS: #Eosinphils 0.1 thou/uL (0.0-0.7); #Lymphocytes 1.1 thou/uL (1.20-3.40); #Monocytes 0.8 thou/uL (0.11-0.59); #Neutrophils 8.1 thou/uL (1.40-6.50); %Basophils 0.1 % (0.0-1.0); %Eosinophils 0.6 % (0.0-10.0); %Lymphocytes 10.4 % (21.0-51.0); %Neutrophils 80.9 % (42.0-75.0); Hemoglobin 12.1 g/dL (14.0-18.0); Mean Corpuscular HGB CONC 33.9 g/dL (32.0-36.0); Mean Corpuscular Hemoglobin 32.4 pg (27.0-31.0); Mean Corpuscular Volume 95.7 fl (78.0-98.0); Mean Platelet Volume 10.6 fL (7.4-10.4); Platelet Count 117 10x3/uL (130-400); RBC Distribution Width 14.1 % (11.5-14.5); Red Blood Cell (RBC) Count 3.74 mill/uL (4.70-6.10)
[2022-09-04 06:14] LABS: ALT (SGPT) 43 U/L (8-55); AST (SGOT) 133 U/L (5-34); Albumin 2.4 g/dL (3.4-4.8); Alkaline Phosphatase 256 U/L (40-110); Anion Gap 12 mmol/L (10-20); BUN (Urea Nitrogen) 11 mg/dL (8.4-25.7); Bilirubin, Total 2.8 mg/dL (0.2-1.2); Calc. Creatinine Clearance 96 mL/min (70-130); Calcium 7.7 mg/dL (7.8-10.44); Carbon Dioxide 23 mmol/L (23-31); Chloride 101 mmol/L (98-107); Estimated GFR 96; Globulin 3.3 g/dL (2.4-3.5); Glucose 92 mg/dL (83-110); Potassium 3.5 mmol/L (3.5-5.1); Protein, Total 5.7 g/dL (5.8-8.1); Sodium 132 mmol/L (136-145)
[2022-09-04 06:40] LABS: Magnesium 1.8 mg/dL (1.6-2.6)
[2022-09-04] MEDS ORDERED: traMADol HCl 50 MG TAB PO PRN ×2 (07:54)
[2022-09-04] MEDS ORDERED: Magnesium 2 GM/50 ML(in water) 2 GM in Premix Bag 1 BAG IVPB SCH (08:00)
[2022-09-04] MEDS ORDERED: Potassium Chloride 20 MEQ TAB PO SCH (08:00)
[2022-09-04] MEDS: Metoprolol Tartrate 50 MG TAB PO SCH (09:24)
[2022-09-04] MEDS: Amlodipine 5 MG TAB PO SCH (09:24)
[2022-09-04] MEDS: Folic Acid 1 MG TAB PO SCH (09:24)
[2022-09-04] MEDS: Multivit, Therapeutic 1 TAB PO SCH (09:25)
[2022-09-04] MEDS: Magnesium Oxide 400 MG TAB PO SCH (09:25)
[2022-09-04] MEDS: Thiamine 100 MG TAB PO SCH (09:33)
[2022-09-04 15:30] VITALS: BP 121/74; TEMP 98.8
== END 2022-09-04 19:11 | DRG 329 ==
LOC: ERS 18:10 → 2SW 23:19 → SURG A 08-30 12:15
PROVIDERS: ADMIT Family Medicine; ATTEND Family Medicine
PROC: 0DBN8ZX Excision of Sigmoid Colon, Via Natural or Artificial Opening Endoscopic, Diagnostic (ICD-10-PCS; 2022-08-29)
PROC: 0DBN4ZZ Excision of Sigmoid Colon, Percutaneous Endoscopic Approach (ICD-10-PCS; principal; 2022-08-30)
PROC: 0JH60WZ Insertion of Totally Implantable Vascular Access Device into Chest Subcutaneous Tissue and Fascia, Open Approach (ICD-10-PCS; 2022-08-30)
PROC: 0FB03ZX Excision of Liver, Percutaneous Approach, Diagnostic (ICD-10-PCS; 2022-08-30)
PROC: 02HV33Z Insertion of Infusion Device into Superior Vena Cava, Percutaneous Approach (ICD-10-PCS; 2022-08-30)
PROC: B5181ZA Fluoroscopy of Superior Vena Cava using Low Osmolar Contrast, Guidance (ICD-10-PCS; 2022-08-30)
DX: C18.7 Malignant neoplasm of sigmoid colon (principal); J18.9 Pneumonia, unspecified organism; E46 Unspecified protein-calorie malnutrition; E87.1 Hypo-osmolality and hyponatremia; C78.7 Secondary malignant neoplasm of liver and intrahepatic bile duct; N17.9 Acute kidney failure, unspecified; I10 Essential (primary) hypertension; E78.5 Hyperlipidemia, unspecified; F32.A Depression, unspecified; G89.29 Other chronic pain; E11.40 Type 2 diabetes mellitus with diabetic neuropathy, unspecified; F17.210 Nicotine dependence, cigarettes, uncomplicated; E87.6 Hypokalemia; F10.10 Alcohol abuse, uncomplicated; E86.0 Dehydration; Z20.822 Contact with and (suspected) exposure to COVID-19; I71.40 Abdominal aortic aneurysm, without rupture, unspecified; E83.42 Hypomagnesemia; K57.30 Diverticulosis of large intestine without perforation or abscess without bleeding; K62.1 Rectal polyp; J98.2 Interstitial emphysema; G47.00 Insomnia, unspecified; Z79.899 Other long term (current) drug therapy; Z88.8 Allergy status to other drugs, medicaments and biological substances; Z98.890 Other specified postprocedural states; Z68.25 Body mass index [BMI] 25.0-25.9, adult
CPT/HCPCS: 36415; 70450; 71045; 71046; 71275; 74018; 74176; 76705; 80053; 80074; 82378; 82553; 82570; 83036; 83690; 83735; 83930; 83935; 84100; 84145; 84300; 84443; 84484; 85025; 87811; 88305; 88307; 88309; 88341; 88342; 93005; 93010; 94640; 96360; A4649; C1788; J0692; J0694; J1642; J1650; J1940; J2270; J2272; J2405; J2550; J2704; J3010; J3411; J3475; J3480; J3490; J7050; J7620; P9045; Q0162; Q9967; Q9968; S0020; U0003; U0005